=== PATIENT | male | born 1965 | race Caucasian/White ===

== ENCOUNTER 2017-12-21 12:45 | Inpatient (IN) | payer MEDICAID ==
[~2017-12-21] VITALS: Ht 188 cm; Wt 55.6 kg
[~2017-12-21 12:45] MED LIST: ALBU17AE26 IH; ATAZ300C PO; CEPH-571 PO; EMTR1TAB PO; HYDR-569 PO; HYDR12.5 PO; LEVO750T21 PO; LORA10TA7 PO; NAPR-56 PO; OMEP40CA37 PO; PREG75CA30 PO; RITO100T PO; SYN0.088T PO; TAM75C PO
[2017-12-21] MEDS ORDERED: normal saline 1000ML IV soln IVB ONE (13:15)
[2017-12-21 13:38] LABS: BASOPHILS # (AUTO) 0.1 X10'3 (0-0.2); BASOPHILS % (AUTO) 3.4 % (0-1); EOSINOPHILS # (AUTO) 0.6 X10'3 (0-0.9); EOSINOPHILS % (AUTO) 23.2 % (0-6); HEMATOCRIT 35.1 % (42.0-52.0); HEMOGLOBIN 12.4 g/dl (14.0-17.9); LYMPHOCYTES # (AUTO) 1.1 X10'3 (1.1-4.8); MEAN CORPUSCULAR HEMOGLOBIN 30.8 PG (27.0-31.0); MEAN CORPUSCULAR HGB CONC 35.5 % (33.0-36.5); MEAN CORPUSCULAR VOLUME 86.9 FL (78-98); MEAN PLATELET VOLUME 9.3 FL (7.4-10.4); MONOCYTES # (AUTO) 0.7 X10'3 (0-0.9); MONOCYTES % (AUTO) 25.2 % (2-12); NEUTROPHILS # (AUTO) 0.2 X10'3 (1.8-7.7); NEUTROPHILS % (AUTO) 6.2 % (42-75); RED BLOOD COUNT 4.04 X10'6 (4.70-6.10); RED CELL DISTRIBUTION WIDTH 14.9 % (11.5-14.5); WHITE BLOOD COUNT 2.7 X10'3 (4.5-11.0)
[2017-12-21 13:54] LABS: PLATELET COUNT 7 X10'3 (140-440)
[2017-12-21 13:55] LABS: ALANINE AMINOTRANSFERASE 17 U/L (12-78); ALBUMIN 3.7 G/DL (3.4-5.0); ALBUMIN/GLOBULIN RATIO 0.8 (1.1-1.5); ALKALINE PHOSPHATASE 75 IU/L (46-116); ANION GAP 13 (8-16); ASPARTATE AMINO TRANSFERASE 16 U/L (10-37); BILIRUBIN,TOTAL 0.5 MG/DL (0.1-1.0); BLOOD UREA NITROGEN 30 MG/DL (7-18); BUN/CREATININE RATIO 11.7 (5.4-32.0); CALCIUM 8.7 MG/DL (8.5-10.1); CHLORIDE 102 MMOL/L (99-107); CREATININE 2.57 MG/DL (0.60-1.10); GLUCOSE 147 MG/DL (70-104); POTASSIUM 4.2 MMOL/L (3.5-5.1); SODIUM 137 MMOL/L (135-145); TOTAL CARBON DIOXIDE 22.1 MMOL/L (24-32); TOTAL PROTEIN 8.5 G/DL (6.4-8.2); eGFR 27 ML/MIN
[2017-12-21 13:59] LABS: PLATELET ESTIMATE DECREASED; TOTAL CELLS COUNTED 100
[2017-12-21 15:44] VITALS: BP 103/56
[2017-12-21 16:10] VITALS: BP 136/76
[2017-12-21] MEDS ORDERED: magnesium hydroxide 30ml (MOM) UD suspension PO PRN (18:05)
[2017-12-21] MEDS ORDERED: HYDROcodone/acetaminophen 5mg/325mg tablet PO PRN (18:05)
[2017-12-21] MEDS ORDERED: mag hydrox/Alum hydrox/simeth 30ml oral suspension PO PRN (18:05)
[2017-12-21] MEDS ORDERED: acetaminophen 325mg tablet PO PRN ×2 (18:05)
[2017-12-21] MEDS ORDERED: ondansetron/PF 4mg/2ml inj IV PRN (18:05)
[2017-12-21] MEDS ORDERED: albuterol 2.5 MG/3 ML nebule NEB PRN (18:25)
[2017-12-21 18:27] LABS: BASOPHILS # (AUTO) 0.1 X10'3 (0-0.2); BASOPHILS % (AUTO) 2.7 % (0-1); EOSINOPHILS # (AUTO) 0.6 X10'3 (0-0.9); EOSINOPHILS % (AUTO) 23.6 % (0-6); HEMOGLOBIN 11.4 g/dl (14.0-17.9); LYMPHOCYTES # (AUTO) 1.2 X10'3 (1.1-4.8); LYMPHOCYTES % (AUTO) 43.5 % (21-51); MEAN CORPUSCULAR HEMOGLOBIN 30.4 PG (27.0-31.0); MEAN CORPUSCULAR HGB CONC 34.6 % (33.0-36.5); MEAN CORPUSCULAR VOLUME 87.9 FL (78-98); MEAN PLATELET VOLUME 9.8 FL (7.4-10.4); MONOCYTES # (AUTO) 0.7 X10'3 (0-0.9); NEUTROPHILS # (AUTO) 0.1 X10'3 (1.8-7.7); NEUTROPHILS % (AUTO) 4.2 % (42-75); RED BLOOD COUNT 3.75 X10'6 (4.70-6.10); RED CELL DISTRIBUTION WIDTH 15.1 % (11.5-14.5); WHITE BLOOD COUNT 2.7 X10'3 (4.5-11.0)
[2017-12-21] MEDS ORDERED: pregabalin 75mg capsule PO PRN (18:35)
[2017-12-21 18:41] LABS: PLATELET ESTIMATE DECREASED; TOTAL CELLS COUNTED 100
[2017-12-21] MEDS ORDERED: OMEP40CA37 PO (18:44)
[2017-12-21] MEDS ORDERED: ALBU8.5H8 INH (18:44)
[2017-12-21] MEDS ORDERED: EMTR1TAB18 (18:44)
[2017-12-21] MEDS ORDERED: LISI40TA4 PO (18:44)
[2017-12-21] MEDS ORDERED: SYN0.088T PO (18:44)
[2017-12-21] MEDS ORDERED: DOLU50TA (18:44)
[2017-12-21 18:47] LABS: PLATELET COUNT 11 X10'3 (140-440)
[2017-12-21 18:48] LABS: CLARITY,URINE CLEAR (Clear); COLOR,URINE YELLOW (Yellow); GLUCOSE, URINE NEGATIVE (Neg); KETONES,URINE NEGATIVE (Neg); LEUKOCYTE ESTERASE ,URINE NEGATIVE (Neg); NITRITES, URINE NEGATIVE (Neg); OCCULT BLOOD,URINE NEGATIVE (Neg); PROTEIN,URINE NEGATIVE (Neg)
[2017-12-21 18:51] LABS: UA COLLECTION TYPE CLN CATCH MIDSTREAM
[2017-12-21 20:03] VITALS: BP 130/70
[2017-12-21 20:13] VITALS: BP 127/83
[2017-12-21] MEDS: normal saline 1000ml 1,000 ML IV SCH (20:23)
[2017-12-21] MEDS ORDERED: temazepam 15mg capsule PO PRN (21:00)
[2017-12-21 22:08] LABS: BASOPHILS # (AUTO) 0.1 X10'3 (0-0.2); BASOPHILS % (AUTO) 2.7 % (0-1); EOSINOPHILS # (AUTO) 0.8 X10'3 (0-0.9); EOSINOPHILS % (AUTO) 32.7 % (0-6); HEMATOCRIT 33.6 % (42.0-52.0); HEMOGLOBIN 11.6 g/dl (14.0-17.9); LYMPHOCYTES % (AUTO) 41.8 % (21-51); MEAN CORPUSCULAR HEMOGLOBIN 30.4 PG (27.0-31.0); MEAN CORPUSCULAR HGB CONC 34.4 % (33.0-36.5); MEAN CORPUSCULAR VOLUME 88.2 FL (78-98); MONOCYTES # (AUTO) 0.5 X10'3 (0-0.9); MONOCYTES % (AUTO) 21.3 % (2-12); NEUTROPHILS % (AUTO) 1.5 % (42-75); RED BLOOD COUNT 3.81 X10'6 (4.70-6.10); RED CELL DISTRIBUTION WIDTH 14.9 % (11.5-14.5); WHITE BLOOD COUNT 2.4 X10'3 (4.5-11.0)
[2017-12-21 22:19] LABS: PLATELET COUNT 13 X10'3 (140-440)
[2017-12-21 22:29] LABS: TOTAL CELLS COUNTED 100
[2017-12-21 22:30] LABS: PLATELET ESTIMATE DECREASED
[2017-12-22 02:01] LABS: ALBUMIN 3.2 G/DL (3.4-5.0); ANION GAP 11 (8-16); BLOOD UREA NITROGEN 25 MG/DL (7-18); BUN/CREATININE RATIO 11.6 (5.4-32.0); CALCIUM 8.2 MG/DL (8.5-10.1); CHLORIDE 104 MMOL/L (99-107); CREATININE 2.15 MG/DL (0.60-1.10); GLUCOSE 110 MG/DL (70-104); POTASSIUM 4.1 MMOL/L (3.5-5.1); SODIUM 137 MMOL/L (135-145); TOTAL CARBON DIOXIDE 22.3 MMOL/L (24-32); eGFR 33 ML/MIN
[2017-12-22 02:10] LABS: HEMATOCRIT 34.1 % (42.0-52.0); HEMOGLOBIN 11.9 g/dl (14.0-17.9); MEAN CORPUSCULAR HEMOGLOBIN 31.2 PG (27.0-31.0); MEAN CORPUSCULAR VOLUME 88.9 FL (78-98); MEAN PLATELET VOLUME 8.9 FL (7.4-10.4); RED BLOOD COUNT 3.83 X10'6 (4.70-6.10); RED CELL DISTRIBUTION WIDTH 15.3 % (11.5-14.5); WHITE BLOOD COUNT 2.7 X10'3 (4.5-11.0)
[2017-12-22 02:35] LABS: PLATELET COUNT 8 X10'3 (140-440)
[2017-12-22 03:41] LABS: PLATELET ESTIMATE DECREASED; TOTAL CELLS COUNTED 100
[2017-12-22 03:42] LABS: SPHEROCYTES FEW
[2017-12-22 03:45] LABS: ANISOCYTOSIS 1+
[2017-12-22 03:46] LABS: TEAR DROP CELLS FEW
[2017-12-22 04:59] VITALS: BP 116/71
[2017-12-22 05:06] VITALS: BP 122/63
[2017-12-22] MEDS: normal saline 1000ml 1,000 ML IV SCH ×2 (05:09→15:10)
[2017-12-22] MEDS ORDERED: levoTHYROXINE 100mcg tablet PO SCH (08:00)
[2017-12-22] MEDS ORDERED: BACDS (12:19)
[2017-12-22 14:15] VITALS: BP 147/82
[2017-12-22] MEDS ORDERED: methylPREDNISolone sod succ 125mg/2ml vial IV ONE (14:55)
[2017-12-24 08:23] LABS: TRIIODOTHYRONINE (T3) 73 ng/dL (71-180)
== END 2017-12-22 23:10 | disposition short-term general hospital (02) | DRG 660 ==
LOC: ER 12:46 → ED HOLD 18:04 → MED 3N 12-22 17:40
PROVIDERS: ADMIT Family Medicine; ATTEND Family Medicine
PROC: 30233R1 Transfusion of Nonautologous Platelets into Peripheral Vein, Percutaneous Approach (ICD-10-PCS; principal; 2017-12-21)
PROC: BW251ZZ Computerized Tomography (CT Scan) of Chest, Abdomen and Pelvis using Low Osmolar Contrast (ICD-10-PCS; 2017-12-21)
DX: D61.818 Other pancytopenia (principal); N17.9 Acute kidney failure, unspecified; N18.3 Chronic kidney disease, stage 3 (moderate); J44.9 Chronic obstructive pulmonary disease, unspecified; E03.9 Hypothyroidism, unspecified; D73.1 Hypersplenism; E86.0 Dehydration; F12.90 Cannabis use, unspecified, uncomplicated; H91.90 Unspecified hearing loss, unspecified ear; I25.10 Atherosclerotic heart disease of native coronary artery without angina pectoris; Z21 Asymptomatic human immunodeficiency virus [HIV] infection status; R73.9 Hyperglycemia, unspecified; F17.210 Nicotine dependence, cigarettes, uncomplicated; Z79.899 Other long term (current) drug therapy; Z80.1 Family history of malignant neoplasm of trachea, bronchus and lung; Z82.3 Family history of stroke; Z86.73 Personal history of transient ischemic attack (TIA), and cerebral infarction without residual deficits
CPT/HCPCS: 36415; 71046; 71250; 74176; 80048; 80053; 81003; 83010; 83615; 83880; 84443; 84480; 84484; 85025; 86885; 86900; 86901; 87070; 96360; 99285; J2930; J7030; P9035

== ENCOUNTER 2018-02-07 20:57 | Emergency (ER) | payer MEDICAID ==
[~2018-02-07] VITALS: Ht 188 cm; Wt 82.8 kg
[~2018-02-07 20:57] MED LIST changes: -ALBU17AE26 IH; +ALBU8.5H8 INH; -ATAZ300C PO; +BACDS; -CEPH-571 PO; +DOLU50TA; -EMTR1TAB PO; +EMTR1TAB18; -HYDR-569 PO; -HYDR12.5 PO; -LEVO750T21 PO; +LISI40TA4 PO; -LORA10TA7 PO; -NAPR-56 PO; -PREG75CA30 PO; -RITO100T PO; -TAM75C PO
[2018-02-07 21:05] VITALS: BP 119/86
== END 2018-02-08 01:23 | disposition left against medical advice (07) ==
LOC: ER 20:57
DX: T78.40XA Allergy, unspecified, initial encounter (principal); M54.5 Low back pain; R07.89 Other chest pain; Z53.21 Procedure and treatment not carried out due to patient leaving prior to being seen by health care provider; X58.XXXA Exposure to other specified factors, initial encounter
CPT/HCPCS: 93005; 99281

== ENCOUNTER 2019-05-16 15:03 | Outpatient (CLI) | payer MEDICAID ==
[~2019-05-16 15:03] MED LIST changes: +OMEP40CA13 PO; -OMEP40CA37 PO
== END 2019-05-16 16:15 | disposition home or self-care (01) ==
LOC: ORTHO 15:03
PROVIDERS: ATTEND Orthopaedic Surgery
DX: M17.11 Unilateral primary osteoarthritis, right knee (principal)
CPT/HCPCS: G0463

== ENCOUNTER 2021-11-20 11:20 | Emergency (ER) | payer MEDICAID ==
[~2021-11-20] VITALS: Ht 188 cm; Wt 77.3 kg
[~2021-11-20 11:20] MED LIST changes: +ALBU8.5H17 INH; -ALBU8.5H8 INH; -BACDS; +LISI40TA13 PO; -LISI40TA4 PO; -OMEP40CA13 PO; +OMEP40CA21 PO; +SULF1TAB45
[2021-11-20 12:07] LABS: BASOPHILS % (AUTO) 0.7 % (0-1); EOSINOPHILS # (AUTO) 0.1 X10'3 (0-0.9); EOSINOPHILS % (AUTO) 1.5 % (0-6); HEMATOCRIT 37.5 % (42.0-52.0); HEMOGLOBIN 12.9 g/dl (14.0-17.9); LYMPHOCYTES # (AUTO) 1.8 X10'3 (1.1-4.8); LYMPHOCYTES % (AUTO) 40.7 % (21-51); MEAN CORPUSCULAR HEMOGLOBIN 28.8 PG (27.0-31.0); MEAN CORPUSCULAR HGB CONC 34.3 g/dL (33.0-36.5); MEAN CORPUSCULAR VOLUME 83.9 FL (78-98); MEAN PLATELET VOLUME 8.5 FL (7.4-10.4); MONOCYTES # (AUTO) 1.8 X10'3 (0-0.9); MONOCYTES % (AUTO) 42.2 % (2-12); NEUTROPHILS # (AUTO) 0.7 X10'3 (1.8-7.7); NEUTROPHILS % (AUTO) 14.9 % (42-75); PLATELET COUNT 158 X10'3 (140-440); RED BLOOD COUNT 4.47 X10'6 (4.70-6.10); RED CELL DISTRIBUTION WIDTH 15.2 % (11.5-14.5); WHITE BLOOD COUNT 4.4 X10'3 (4.5-11.0)
[2021-11-20] MEDS ORDERED: normal saline 1000ML IV soln IV ONE (12:10)
[2021-11-20 12:23] LABS: ALANINE AMINOTRANSFERASE 26 U/L (12-78); ALBUMIN 3.5 G/DL (3.4-5.0); ALBUMIN/GLOBULIN RATIO 0.6 (1.1-1.5); ALKALINE PHOSPHATASE 133 IU/L (46-116); ANION GAP 15 (8-16); ASPARTATE AMINO TRANSFERASE 25 U/L (10-37); BILIRUBIN,TOTAL 0.9 MG/DL (0.1-1.0); BLOOD UREA NITROGEN 53 MG/DL (7-18); BUN/CREATININE RATIO 15.8 (5.4-32.0); CALCIUM 8.8 MG/DL (8.5-10.1); CHLORIDE 90 MMOL/L (99-107); CREATININE 3.35 MG/DL (0.60-1.10); GLUCOSE 109 MG/DL (70-104); POTASSIUM 3.1 MMOL/L (3.5-5.1); SODIUM 126 MMOL/L (135-145); TOTAL CARBON DIOXIDE 21.2 MMOL/L (24-32); TOTAL PROTEIN 8.9 G/DL (6.4-8.2); eGFR 19 ML/MIN
[2021-11-20 13:14] VITALS: BP 113/74
[2021-11-20 13:25] LABS: PLATELET ESTIMATE NORMAL; TOTAL CELLS COUNTED 100
--- NOTE | 2021-11-20 13:30 | NUR ---
Pt sitting comfortably in bed, leaning forward asking for a urinal.
[2021-11-20 14:37] LABS: CLARITY,URINE CLEAR (Clear); COLOR,URINE YELLOW (Yellow); GLUCOSE, URINE NEGATIVE (Neg); KETONES,URINE NEGATIVE (Neg); LEUKOCYTE ESTERASE ,URINE NEGATIVE (Neg); NITRITES, URINE NEGATIVE (Neg); OCCULT BLOOD,URINE SMALL (Neg); PROTEIN,URINE TRACE mg/dl (Neg); UROBILINOGEN,URINE 0.2 E.U/dL (0.2-1.0)
[2021-11-20 14:49] LABS: UA COLLECTION TYPE VOIDED
[2021-11-20 14:51] LABS: HYALINE CASTS 0-3 /LPF (NEGATIVE); WBC,URINE 0-4 /HPF (0-4)
[2021-11-20 14:52] LABS: BACTERIA,URINE FEW /HPF (Neg); MUCUS STRANDS NONE SEEN /LPF (Neg); RBC,URINE 0-2 /HPF (0-2); SQUAMOUS EPITHELIAL CELL,UR FEW /LPF (FEW)
== END 2021-11-20 14:51 | disposition home or self-care (01) ==
LOC: ER 11:21
DX: S20.212A Contusion of left front wall of thorax, initial encounter (principal); I13.11 Hypertensive heart and chronic kidney disease without heart failure, with stage 5 chronic kidney disease, or end stage renal disease; N18.6 End stage renal disease; Y04.8XXA Assault by other bodily force, initial encounter; Y93.89 Activity, other specified; Y92.89 Other specified places as the place of occurrence of the external cause; Y99.8 Other external cause status
CPT/HCPCS: 36415; 71045; 74176; 80053; 81001; 84484; 85007; 85025; 85610; 86885; 86900; 86901; 93005; 99285; J7030

== ENCOUNTER 2022-01-02 13:42 | Emergency (ER) | payer MEDICAID ==
[~2022-01-02] VITALS: Ht 182.9 cm; Wt 77.0 kg
[2022-01-02 13:53] VITALS: BP 132/86
== END 2022-01-02 16:41 | disposition home or self-care (01) ==
LOC: ER 13:43
DX: M25.462 Effusion, left knee (principal); I11.9 Hypertensive heart disease without heart failure; J44.9 Chronic obstructive pulmonary disease, unspecified; F12.10 Cannabis abuse, uncomplicated; F15.10 Other stimulant abuse, uncomplicated; E06.9 Thyroiditis, unspecified; Z79.899 Other long term (current) drug therapy
CPT/HCPCS: 29505; 73564; 99284

== ENCOUNTER 2022-07-06 14:47 | Emergency (ER) | payer MEDICAID ==
[~2022-07-06] VITALS: Ht 188 cm; Wt 81.8 kg
[2022-07-06 15:00] VITALS: BP 106/71
[2022-07-06 16:43] LABS: EOSINOPHILS # (AUTO) 0.3 X10'3 (0-0.9); LYMPHOCYTES # (AUTO) 1.4 X10'3 (1.1-4.8); MEAN PLATELET VOLUME 7.8 FL (7.4-10.4); NEUTROPHILS # (AUTO) 0.4 X10'3 (1.8-7.7); WHITE BLOOD COUNT 2.8 X10'3 (4.5-11.0)
[2022-07-06 16:44] LABS: HEMATOCRIT 40.2 % (42.0-52.0); HEMOGLOBIN 13.9 g/dl (14.0-17.9); MEAN CORPUSCULAR HEMOGLOBIN 29.1 PG (27.0-31.0); MEAN CORPUSCULAR HGB CONC 34.5 g/dL (33.0-36.5); MEAN CORPUSCULAR VOLUME 84.4 FL (78-98); PLATELET COUNT 84 X10'3 (140-440); RED BLOOD COUNT 4.77 X10'6 (4.70-6.10); RED CELL DISTRIBUTION WIDTH 13.2 % (11.5-14.5)
[2022-07-06 16:45] LABS: BASOPHILS % (AUTO) 1.4 % (0-1); LYMPHOCYTES % (AUTO) 49.5 % (21-51); MONOCYTES # (AUTO) 0.7 X10'3 (0-0.9); MONOCYTES % (AUTO) 23.1 % (2-12)
[2022-07-06 17:02] LABS: ALANINE AMINOTRANSFERASE 17 U/L (12-78); ALBUMIN 3.6 G/DL (3.4-5.0); ALBUMIN/GLOBULIN RATIO 0.9 (1.1-1.5); ALKALINE PHOSPHATASE 89 IU/L (46-116); ANION GAP 8 (8-16); ASPARTATE AMINO TRANSFERASE 30 U/L (10-37); BILIRUBIN,TOTAL 0.6 MG/DL (0.1-1.0); BLOOD UREA NITROGEN 21 MG/DL (7-18); CALCIUM 9.1 MG/DL (8.5-10.1); CHLORIDE 98 MMOL/L (99-107); CREATININE 2.64 MG/DL (0.60-1.10); GLUCOSE 100 MG/DL (70-104); POTASSIUM 4.9 MMOL/L (3.5-5.1); SODIUM 133 MMOL/L (135-145); TOTAL CARBON DIOXIDE 26.8 MMOL/L (24-32); TOTAL PROTEIN 7.7 G/DL (6.4-8.2); eGFR 25 ML/MIN
[2022-07-06 17:10] LABS: TOTAL CELLS COUNTED 100
[2022-07-06 17:11] LABS: GIANT PLATELET FEW; PLATELET ESTIMATE DECREASED
[2022-07-06 17:26] LABS: ETHANOL < 0.010 GM/DL (0.0-0.010)
[2022-07-06 18:07] LABS: URINE AMPHETAMINE SCREEN POSITIVE (Neg); URINE BARBITUATE SCREEN NEGATIVE (Neg); URINE BENZODIAZEPINES SCREEN NEGATIVE (Neg); URINE CANNABINOID SCREEN POSITIVE (Neg); URINE COCAINE SCREEN NEGATIVE (Neg); URINE METHADONE SCREEN NEGATIVE (Neg); URINE OPIATE SCREEN NEGATIVE (Neg); URINE PHENCYCLIDINE SCREEN NEGATIVE (Neg)
== END 2022-07-06 20:18 | disposition home or self-care (01) ==
LOC: ER 14:48
DX: R44.0 Auditory hallucinations (principal); J44.9 Chronic obstructive pulmonary disease, unspecified; I10 Essential (primary) hypertension; E07.9 Disorder of thyroid, unspecified; F12.10 Cannabis abuse, uncomplicated; F15.10 Other stimulant abuse, uncomplicated
CPT/HCPCS: 36415; 70450; 80053; 80305; 80320; 82140; 84443; 85007; 85025; 99284

== ENCOUNTER 2022-08-21 13:17 | Emergency (ER) | payer MEDICAID ==
[~2022-08-21] VITALS: Ht 188 cm; Wt 81.0 kg
[2022-08-21 13:23] VITALS: BP 162/91
[2022-08-21 15:32] LABS: BASOPHILS # (AUTO) 0.1 X10'3 (0-0.2); BASOPHILS % (AUTO) 0.9 % (0-1); EOSINOPHILS # (AUTO) 0.1 X10'3 (0-0.9); EOSINOPHILS % (AUTO) 1.8 % (0-6); HEMOGLOBIN 12.5 g/dl (14.0-17.9); LYMPHOCYTES # (AUTO) 2.1 X10'3 (1.1-4.8); LYMPHOCYTES % (AUTO) 27.3 % (21-51); MEAN CORPUSCULAR HEMOGLOBIN 30.1 PG (27.0-31.0); MEAN CORPUSCULAR HGB CONC 33.7 g/dL (33.0-36.5); MEAN CORPUSCULAR VOLUME 89.4 FL (78-98); MEAN PLATELET VOLUME 6.4 FL (7.4-10.4); MONOCYTES # (AUTO) 0.7 X10'3 (0-0.9); MONOCYTES % (AUTO) 9.7 % (2-12); NEUTROPHILS # (AUTO) 4.6 X10'3 (1.8-7.7); NEUTROPHILS % (AUTO) 60.3 % (42-75); PLATELET COUNT 245 X10'3 (140-440); RED BLOOD COUNT 4.14 X10'6 (4.70-6.10); RED CELL DISTRIBUTION WIDTH 17.2 % (11.5-14.5); WHITE BLOOD COUNT 7.7 X10'3 (4.5-11.0)
[2022-08-21 15:46] LABS: ALANINE AMINOTRANSFERASE 19 U/L (12-78); ALBUMIN 3.5 G/DL (3.4-5.0); ALKALINE PHOSPHATASE 107 IU/L (46-116); ANION GAP 12 (8-16); ASPARTATE AMINO TRANSFERASE 19 U/L (10-37); BILIRUBIN,TOTAL 0.8 MG/DL (0.1-1.0); BLOOD UREA NITROGEN 24 MG/DL (7-18); BUN/CREATININE RATIO 16.4 (5.4-32.0); C-REACTIVE PROTEIN 2.58 MG/DL (0.0-0.5); CALCIUM 8.6 MG/DL (8.5-10.1); CHLORIDE 101 MMOL/L (99-107); CREATININE 1.46 MG/DL (0.60-1.10); GLUCOSE 97 MG/DL (70-104); POTASSIUM 4.3 MMOL/L (3.5-5.1); SODIUM 138 MMOL/L (135-145); TOTAL CARBON DIOXIDE 24.8 MMOL/L (24-32); TOTAL PROTEIN 6.9 G/DL (6.4-8.2); eGFR 50 ML/MIN
== END 2022-08-21 17:10 | disposition home or self-care (01) ==
LOC: ER 13:18
DX: L53.8 Other specified erythematous conditions (principal); M25.471 Effusion, right ankle; J44.9 Chronic obstructive pulmonary disease, unspecified; E03.9 Hypothyroidism, unspecified; I11.9 Hypertensive heart disease without heart failure; F12.10 Cannabis abuse, uncomplicated; F15.10 Other stimulant abuse, uncomplicated; Z79.899 Other long term (current) drug therapy; Z79.1 Long term (current) use of non-steroidal anti-inflammatories (NSAID)
CPT/HCPCS: 29540; 36415; 73610; 80053; 85025; 85651; 86140; 99283; L1930

== ENCOUNTER 2024-02-23 15:04 | Outpatient (CLI) | payer MEDICAID | END 2024-02-23 23:59 | disposition home or self-care (01) | LOC: RAD 15:04 | PROVIDERS: ATTEND Student in an Organized Health Care Education/Training Program | DX: Z12.2 Encounter for screening for malignant neoplasm of respiratory organs (principal); R91.8 Other nonspecific abnormal finding of lung field; R59.0 Localized enlarged lymph nodes; I25.10 Atherosclerotic heart disease of native coronary artery without angina pectoris; I35.8 Other nonrheumatic aortic valve disorders | CPT/HCPCS: 71271 ==

== ENCOUNTER 2025-05-16 18:31 | Emergency (ER) | payer MEDICAID ==
[~2025-05-16] VITALS: Ht 188 cm; Wt 81.8 kg
[~2025-05-16 18:31] MED LIST changes: -LISI40TA13 PO; +LISI40TA20 PO
[2025-05-16 18:43] VITALS: TEMP 98.4
--- NOTE | 2025-05-16 21:11 | Physician Documentation ---
History of Present Illness ~ Chief Complaint: Abscess Stated Complaint: INFECTION Time Seen by MD: 20:26 Primary Medical Doctor: Jermaine Mode of Arrival: POV HPI 59-year-old male who is hard of hearing presents with a complaint of an infection in his right shoulder. Wound is open and draining pus with red erythema in the surrounding tissue denies any fevers states he does have a history of IV drug use. Denies any alcohol use Patient states that this infection started 2-3 days ago however upon initial observation it appears a chronic skin developed has since developed surrounding infection acutely Day of Onset: May 16, 2025 Tetanus Within 5 Years: Yes Medication Reconciliation Allergies: Coded Allergies: No Known Allergies (Unverified , 05/16/25) Scheduled Albuterol Sulfate (Proair Hfa), 2 PUFFS INH Q4HPRN, (Reported) Dolutegravir Sodium (Tivicay), 1 TAB DAILY, (Reported) Emtricitabine/Tenofov Alafenam (Descovy 200-25 mg Tablet), 1 TABLET DAILY, (Reported) Levothyroxine Sodium* (Synthroid*), 300 MCG PO DAILY, (Reported) Lisinopril* (Lisinopril*), 5 MG PO DAILY, (Reported) Omeprazole (Prilosec), 20 MG PO DAILY, (Reported) Miscellaneous Medications Sulfamethoxazole/Trimethoprim (Septra Ds Tab), (Reported) Past Medical History Past Medical History: CVA/TIA/Stroke, Hypertension, COPD, *GI/HEPATOBILIARY*, Hypothyroidism, HIV Past Surgical History: noncontributory Patient History: (CAD) Coronary arteriosclerosis (COPD) Chronic obstructive lung disease (CVA) Cerebrovascular accident Alcohol Use: Occasionally Drug Use: marijuana, methamphetamine Lives with: Other Lives In: Home Review of Systems All Other Systems at this time: Reviewed and Negative ROS As stated above in the HPI, otherwise all systems are reviewed and negative. Physical Exam Vital Signs: Temperature: 98.4, Source: Temporal, Heart Rate: 62, Respiratory Rate: 16, BP: 137/95, Pulse Oximetry: 99, Weight: 81.820 Oxygen Flow Rate: 0 Physical Exam General: Alert, no apparent distress. Chest: No accessory muscle use. Large skin growth 4x5cm ,on the right clavicle region with surrounding erythema and purulent discharge Neurologic: Oriented x4. Psychiatric: Normal mood and affect. Skin: Normal color, warm and dry. No edema, no ecchymosis. Progress Results/Orders Results/Orders Orders - OLLIE LLANOS DNA SEQUENCING ASSOCIATE Culture Body Fluid Order (05/16/25 20:31) Culture Blood (05/16/25 20:35) Urinalysis, Cult If Indicated (05/16/25 20:35) Monitor (05/16/25 20:35) Saline Lock (05/16/25 20:35) Cult (Aer) Routine C&S+Gram St (05/16/25 21:07) Completed Orders - OLLIE LLANOS H DNA SEQUENCING ASSOCIATE Cbc/Diff (05/16/25 20:35) Procalcitonin (05/16/25 20:35) BMP (05/16/25 20:35) Lacticsepsis (05/16/25 20:35) Sulfamethox/Trimetho. Ds Tab (Septra Ds (05/16/25 21:40) Cephalexin Capsule (Keflex Capsule) (05/16/25 21:40) Medications Received in ER Medications (Trade) Dose Ordered Sig/Xochitl Route PRN Reason Start Time Stop Time Status Last Admin Dose Admin (Mayra DS tab) 1 tab ONCE ONCE PO 05/16/25 21:40 05/16/25 21:41 DC 05/16/25 21:56 1 TAB (Keflex capsule) 500 mg ONCE ONCE PO 05/16/25 21:40 05/16/25 21:41 DC 05/16/25 21:56 500 MG Vital Signs 05/16/25 05/16/25 05/16/25 05/16/25 18:43 19:50 19:51 21:13 Temp 98.4 Pulse 67 62 68 Resp 16 16 16 B/P (MAP) 125/81 137/95 (109) 118/88 (98) Pulse Ox 98 99 98 O2 Flow Rate 0 Laboratory Tests Test 05/16/25 20:50 05/16/25 21:00 White Blood Count 4.9 Red Blood Count 3.63 L Hemoglobin 11.7 L Hematocrit 32.9 L Mean Corpuscular Volume 90.6 Mean Corpuscular Hemoglobin 32.2 H Mean Corpuscular Hemoglobin Concent 35.5 Red Cell Distribution Width 15.2 H Platelet Count 165 Mean Platelet Volume 7.6 Neutrophils (%) (Auto) 56.2 Lymphocytes (%) (Auto) 30.5 Monocytes (%) (Auto) 7.3 Eosinophils (%) (Auto) 4.0 Basophils (%) (Auto) 2.0 H Neutrophils # (Auto) 2.7 Lymphocytes # (Auto) 1.5 Monocytes # (Auto) 0.4 Eosinophils # (Auto) 0.2 Basophils # (Auto) 0.1 CBC Comment Sodium Level 138 Potassium Level 4.6 Chloride Level 103 Carbon Dioxide Level 27.0 Anion Gap 8 Blood Urea Nitrogen 19 H Creatinine 2.32 H Estimated GFR/1.73 m2 29 BUN/Creatinine Ratio 8.2 L Glucose Level 97 Lactic Acid Level 0.7 Calcium Level 8.7 Albumin 3.4 Procalcitonin < 0.05 Chemistry Comments Urine Comment Medical Decision Making Findings Utilizing the bedside ultrasound I did not appreciate any signs of a large pustule or cavity that required draining wound appears chronic however patient likely has developed a cutaneous infection in the surrounding tissue. Ordered a wound culture and awaiting laboratory He has not indicate any signs of sepsis however I do want to treat the patient for a developing cutaneous infection. I also think patient needs to follow up with Dermatology for further evaluation of his lesion Differential Dx:Considerations: Include: Abscess, Bacteremia, Cellulitis, Erysipelas, Felon, Gas gangrene, Hidrademitis suppurativa, Impetigo, Lymphangitis, Osteromyelitis, Paronychia, Septicemia, Other Departure Disposition: 01 HOME / SELF CARE / HOMELESS Impression: Primary Impression: CKD (chronic kidney disease), stage IV Additional Impressions: Cellulitis Skin lesion Condition: Stable Discharge Instructions: Cellulitis, Adult, [id number] Referrals: NO PRIMARY CARE PROVIDER (PCP) Prescriptions Sulfamethoxazole/Trimethoprim (Septra Ds Tab) 800 Mg/160 Mg Tablet 1 TAB PO Q12H for 10 Days, #20 TAB Prov: OLLIE LLANOS NP 05/16/25 Cephalexin*Monohydrate* (Keflex*) 500 Mg Capsule 1 CAP PO QID, #40 CAP Prov: OLLIE LLANOS NP 05/16/25 Signature Scribe Signature: t Attestation: Scribed for Ollie Llanos Np by Ollie Klein NP . 05/16/25 21:42 OLLIE LLANOS NP May 16, 2025 21:11
[2025-05-16 21:13] VITALS: BP 118/88; PULSE 68; RESP 16; O2SAT 98
[2025-05-16 21:24] LABS: CREATININE 2.32 MG/DL (0.60-1.10); TOTAL CARBON DIOXIDE 27.0 MMOL/L (24-32); eCRCL 40 ML/MIN; eGFR 29 ML/MIN
[2025-05-16 21:31] LABS: MEAN PLATELET VOLUME 7.6 FL (7.4-10.4); RED CELL DISTRIBUTION WIDTH 15.2 % (11.5-14.5)
[2025-05-16] MEDS: sulfamethoxazole/trimethoprim DS (800/160mg) tablet PO ONE (21:56)
[2025-05-16] MEDS ORDERED: SULF1TAB45 PO (22:05)
[2025-05-16] MEDS ORDERED: CEPH-585 PO (22:05)
== END 2025-05-16 22:12 | disposition home or self-care (01) ==
LOC: ER 18:32
DX: I12.9 Hypertensive chronic kidney disease with stage 1 through stage 4 chronic kidney disease, or unspecified chronic kidney disease (principal); N18.4 Chronic kidney disease, stage 4 (severe); L03.818 Cellulitis of other sites; J44.9 Chronic obstructive pulmonary disease, unspecified; F12.90 Cannabis use, unspecified, uncomplicated; E03.9 Hypothyroidism, unspecified; F15.90 Other stimulant use, unspecified, uncomplicated; I25.10 Atherosclerotic heart disease of native coronary artery without angina pectoris; Z86.73 Personal history of transient ischemic attack (TIA), and cerebral infarction without residual deficits; Z79.899 Other long term (current) drug therapy; Z72.89 Other problems related to lifestyle
CPT/HCPCS: 36415; 80048; 83605; 84145; 85025; 87040; 87070; 99284

== ENCOUNTER 2025-07-13 05:45 | Day surgery (SDC) | payer MEDICAID ==
--- NOTE | 2025-07-06 11:11 | ELECTROCARDIOGRAPH REPORT ---
[facility] Test Date: 2025-07-06 Test Time: 11:09:45 Pat Name: ERNESTO BARAKAT Department: [facility]-PRE-OP Patient ID: [id number] Room: Gender: M [employer] To Door Salesperson: MARGARITA : 1965 Requested By: QUEENIE MANCIA Order Number: [id number] Reading MD: Dr. MCKENZIE Alba Measurements Intervals Galt Rate: 57 P: 62 HI: 197 QRS: 62 QRSD: 157 T: 58 QT: 503 QTc: 490 Interpretive Statements Sinus bradycardia Right bundle branch block Electronically Signed On 07-06-2025 18:04:[address] MCKENZIE Alba Please click the below link to view image of tracing.
[2025-07-06 11:34] LABS: MEAN PLATELET VOLUME 7.5 FL (7.4-10.4); RED CELL DISTRIBUTION WIDTH 14.9 % (11.5-14.5)
[2025-07-06 11:37] LABS: PRE OP HEMATOCRIT 34.3 % (42.0-52.0); PRE OP HEMOGLOBIN 11.8 g/dL (14.0-17.9); PRE OP PLATELET COUNT 170 X10'3 (140-440); PRE OP WHITE BLOOD COUNT 5.6 10'3 (4.8-10.8)
--- NOTE | 2025-07-06 11:50 | RADIOLOGY REPORT ---
CT Chest without intravenous contrast INDICATION: LUNG MASS TECHNIQUE: Multidetector spiral CT of the chest was performed from the lung apices to the upper abdomen. Axial, coronal and sagittal multiplanar reformats were performed. Radiation Dose : 1. Chest: CTDI volume is 9.6 mGy. Dose-length product is 365.97 mGy*cm The dose indicators for CT are the volume Computed Tomography (CT) Dose Index (CTDIvol) and the Dose Length Product (DLP), and are measured in units of mGy and mGy-cm, respectively. These indicators are not patient dose, but values generated from the CT scanner acquisition factors. The report includes radiation exposure data for exposures received during this examination. Comparison: CT CT CHEST LOW DOSE on DOS: 02/23/24, CHEST,SINGLE VIEW on DOS: 11/20/21 Findings: Lower neck: Normal thyroid. Lungs: Dependent atelectasis. Spiculated nodule in the anterior right upper lobe measures 1.2 cm. Heart/Vascular Structures: Cardiomegaly. Coronary artery calcifications. Vascular calcifications of the aorta. Lymph Nodes: Multiple subcentimeter mediastinal lymph nodes. No adenopathy. Pleura: No pleural effusion or significant pneumothorax. Musculoskeletal: Degenerative changes of the spine. No acute osseous abnormality. Soft tissues: Normal. Upper abdomen: Limited portions of the upper abdomen are unremarkable. IMPRESSION: Spiculated nodule in the anterior right upper lobe measures 1.2 cm. Radiation optimization: All CT scans at this facility use at least one of these dose optimization techniques: automated exposure control mA and/or kV adjustment per patient size (includes targeted exams where dose is matched to clinical indication) or iterative reconstruction.
[2025-07-06 12:06] LABS: CREATININE 2.60 MG/DL (0.60-1.10); PRE OP ALT 16 U/L (30-65); PRE OP ANION GAP 9 (8-16); PRE OP AST 29 U/L (10-37); PRE OP BILIRUB, TOTAL 0.5 MG/DL (0.0-1.0); PRE OP GLUCOSE 86 MG/DL (70-104); PRE OP POTASSIUM 4.2 MMOL/L (3.4-5.1); PRE OP SODIUM 136 MMOL/L (135-145); TOTAL CARBON DIOXIDE 27.8 MMOL/L (24-32); eGFR 25 ML/MIN
[~2025-07-13] VITALS: Ht 188 cm; Wt 77.3 kg
[~2025-07-13 05:45] MED LIST changes: -EMTR1TAB18; +EMTR1TAB18 PO; +LEVO100T PO; -LISI40TA20 PO; -OMEP40CA21 PO; -SULF1TAB45; -SYN0.088T PO
[2025-07-13 06:15] VITALS: BP 141/90; PULSE 57; RESP 16; TEMP 97.9; O2SAT 99
[2025-07-13] MEDS ORDERED: epiNEPHrine 1 MG/ML 1 ml ampule **BRONCH ONLY ONE (06:54)
[2025-07-13] MEDS ORDERED: LIDOCAINE 4% (40MG/ML) topical solution 50ml **BRONCH ONLY ONE (06:55)
[2025-07-13] MEDS: ringers solution, lacted 1,000 ML IV SCH (06:55)
[2025-07-13] MEDS ORDERED: midazolam 1 mg/ML 2ml injection ONE (08:26)
[2025-07-13] MEDS ORDERED: fentaNYL/PF 50MCG/1 ML 2ML syringe ONE (08:26)
[2025-07-13] MEDS ORDERED: ondansetron/PF 4mg/2ml inj ONE (08:33)
[2025-07-13] MEDS ORDERED: HYDROmorphone/PF 0.2 MG/ML SYRINGE IV PRN ×2 (09:15)
[2025-07-13] MEDS ORDERED: labetalol 20mg/4ml (5mg/ml) syringe IV PRN (09:15)
[2025-07-13] MEDS ORDERED: morphine 4 MG/ML inj SYRINge IV PRN (09:15)
[2025-07-13] MEDS ORDERED: ringers solution, lacted 1,000 ML IV SCH (09:15)
[2025-07-13] MEDS ORDERED: fentaNYL/PF 50MCG/1 ML 2ML syringe IV PRN ×2 (09:15)
[2025-07-13] MEDS ORDERED: ondansetron/PF 4mg/2ml inj IV PRN (09:15)
[2025-07-13] MEDS ORDERED: enalaprilat 1.25mg/ml 2ml vial IV PRN (09:15)
[2025-07-13 09:34] VITALS: BP 139/89; PULSE 58; RESP 16; O2SAT 99
[2025-07-13 09:40] VITALS: BP 118/83; PULSE 60; RESP 14; O2SAT 99
[2025-07-13 09:50] VITALS: BP 116/80; PULSE 56; RESP 17; O2SAT 96
[2025-07-13] MEDS ORDERED: dexamethasone sod phosphate 4mg/ml inj. ONE (09:58)
[2025-07-13] MEDS ORDERED: LIDOcaine 2% (20mg/ml) 5ml vial ONE (09:58)
[2025-07-13] MEDS ORDERED: rocuronium 10mg/ml inj IV ONE (09:58)
[2025-07-13] MEDS ORDERED: propofol inj 20 ML IV ONE (09:58)
[2025-07-13 10:00] VITALS: BP 127/82; PULSE 59; RESP 12; O2SAT 96
--- NOTE | 2025-07-13 14:12 | OPERATIVE REPORT ---
DATE OF SURGERY: 07/13/2025 DICTATING PHYSICIAN: Chris Miranda MD PROCEDURE: Bronchoscopy. INDICATIONS: Patient with a right upper lung mass. POSTOPERATIVE DIAGNOSES: Right upper lung mass, emphysema, and COPD. DESCRIPTION OF PROCEDURE: The patient signed a consent after indications, potential complications were explained. He was intubated and sedated per protocol. I did a robotic bronchoscopy with [employer] system with multiple passes also to the nodules. We did about 7 passes of 2 nodules present and then every time we did that, we also did a navigation with the radial ultrasound, transbronchial biopsy, and transbronchial fine needle aspirations. I also did a cone beam CT scan at the bedside, BAL, and EBUS. Once the patient is sedated and intubated, we already had a plan on the computer system for the robotic bronchoscopy system. We navigated the catheter into the mass and we confirmed that the catheter was in the right position with a radial ultrasound. I did have to do a cone beam CT scan because the second lesion was the one that would look more concerning. It was very close to the first one, but it was very hard to get to, so I did require to recalibrate after the cone beam CT scan was done, but we got really good signals after that with a radial ultrasound. We got multiple samples between the 2 lesions that were close by. 8 different passes were done. Then we switched over to endobronchial ultrasound bronchoscope. There were some paratracheal lymph nodes quite large, about 1-2 cm in size in zone 7, 10R, and 10L. We started in the distal area on the left side and then moved to the middle and then to the right side. I also did a BAL. There was no pneumothorax. We checked with a fluoroscopy at the bedside. The patient tolerated the procedure well. No complications. Chris Miranda MD TID: [id number] RECEIPT: [id number] KAYLIN/ARDEN
--- NOTE | 2025-07-18 12:32 | PATHOLOGY REPORT ---
[facility] [address] [place] [address] [employer] CYTOLOGY REPORT CaseNumber: [id number] Surgeon:Chris Miranda PA-C CLINICAL INFORMATION CLINICAL INFORMATION: Pt with right upper lobe mass DIAGNOSIS DIAGNOSIS: A.LUNG, RIGHT UPPER LOBE; FINE NEEDLE ASPIRATION - EXTREMELY RARE REACTIVE BRONCHIAL EPITHELIAL CELLS. DIAGNOSIS: B.LUNG, RIGHT UPPER LOBE; BIOPSY - RARE BENIGN LUNG TISSUE. DIAGNOSIS: C.LYMPH NODE, ST 10L; FINE NEEDLE ASPIRATION - BENIGN LYMPHOID TISSUE. DIAGNOSIS: D.LYMPH NODE, ST 10R; FINE NEEDLE ASPIRATION - RARE ATYPICAL GLANDULAR CELLS, FAVOR REACTIVE. DIAGNOSIS: E.LYMPH NODE, ST 7; FINE NEEDLE ASPIRATION - EXTREMELY RARE ATYPICAL GLANDULAR CELLS, FAVOR REACTIVE. MICROSCOPIC DESCRIPTION A. LUNG, RIGHT UPPER LOBE MICROSCOPIC DESCRIPTION: 1 H&E stained cellblock and 1 double cytospin slide are examined. The H&E shows predominantly blood and fibrin intermixed with sparse histiocytes and lymphocytes. Extremely rare reactive bronchial epithelial cells with cilia are present. Double cytospin slide shows predominantly fibrin and rare lymphocytes B. LUNG, RIGHT UPPER LOBE MICROSCOPIC DESCRIPTION: 1 H&E-stained slide is examined showing a core biopsy of alveolar lung tissue. There are no malignant features. C. LYMPH NODE, ST 10L MICROSCOPIC DESCRIPTION: 1 H&E stained cellblock and 1 double cytospin slide are examined. They show fragments of benign lymphoid tissue. D. LYMPH NODE, ST 10R MICROSCOPIC DESCRIPTION: 1 H&E stained cellblock and 1 double cytospin slide are examined. The cellblock shows predominantly serum intermixed with inflammatory cells and scattered single rare atypical epithelioid cells with high NC ratios, coarse chromatin, rare mitotic activity, and scant granular eosinophilic cytoplasm. The background shows fragments of cartilage. These findings are favored to represent reactive glandular cells. The double cytospin slide shows predominantly serum and sparse inflammation. E. LYMPH NODE, ST 7 MICROSCOPIC DESCRIPTION: 1 H&E stained cellblock and 1 double cytospin slide are examined. The cellblock shows sparse acellular debris intermixed with inflammatory cells and atypical glandular cells that are favored to represent r eactive bronchial epithelial cells. The double cytospin slide shows similar findings. GROSS DESCRIPTION A. LUNG, RIGHT UPPER LOBE GROSS DESCRIPTION: Specimen is received in [facility], labeled with the patient's name and identified as "RUL FNA", having a total volume of 15mL. One double cytospin slide and one cell block is prepared. The cell block is submitted as A1. The time at which the specimen was collected was 0835. The time at which the specimen was placed in formalin was 0835. B. LUNG, RIGHT UPPER LOBE GROSS DESCRIPTION: Received in a container of formalin labeled with the patient's name, number, and "biopsy RUL "is a 0.4 x 0.3 x 0.1 cm of irregularly shaped pieces of baxter tissue submitted entirely as B1.The time at which the specimen was removed was not provided. The time at which the specimen was placed in formalin was not provided. C. LYMPH NODE, ST 10L GROSS DESCRIPTION: Specimen is received in cytostat red, labeled with the patient's name and identified as "FNA 10L", having a total volume of 15mL. One double cytospin slide and one cell block is prepared. The cell block is submitted as C1. The time at which the specimen was collected was 0835. The time at which the specimen was placed in formalin was 0835. D. LYMPH NODE, ST 10R GROSS DESCRIPTION: Specimen is received in cytostat red, labeled with the patient's name and identified as "FNA 10R", having a total volume of 15mL. One double cytospin slide and one cell block is prepared. The cell block is submitted as D1. The time at which the specimen was collected was 0835. The time at which the specimen was placed in formalin was 0835. E. LYMPH NODE, ST 7 GROSS DESCRIPTION: Specimen is received in cytostat red, labeled with the patient's name and identified as "FNA 7", having a total volume of 15mL. One double cytospin slide and one cell block is prepared. The cell block is submitted as E1. The time at which the specimen was collected was 0835. The time at which the specimen was placed in formalin was 0835. Electronically signed by: Rob Guevara, 07/18/2025 11:52:00 AM
== END 2025-07-13 10:14 | disposition home or self-care (01) ==
LOC: PAS 05:45
PROVIDERS: ATTEND Internal Medicine Critical Care Medicine
DX: R22.2 Localized swelling, mass and lump, trunk (principal); J98.4 Other disorders of lung; I45.10 Unspecified right bundle-branch block; I12.9 Hypertensive chronic kidney disease with stage 1 through stage 4 chronic kidney disease, or unspecified chronic kidney disease; N18.4 Chronic kidney disease, stage 4 (severe); J44.9 Chronic obstructive pulmonary disease, unspecified; E03.9 Hypothyroidism, unspecified; F32.A Depression, unspecified; I25.2 Old myocardial infarction; Z86.73 Personal history of transient ischemic attack (TIA), and cerebral infarction without residual deficits; Z79.890 Hormone replacement therapy; Z79.891 Long term (current) use of opiate analgesic; Z79.899 Other long term (current) drug therapy; Z90.89 Acquired absence of other organs; Z98.890 Other specified postprocedural states
CPT/HCPCS: 31624; 31627; 31628; 31653; 31654; 71250; 80053; 82948; 85025; 87015; 87070; 87116; 87206; 93005; J0169; J1100; J2003; J2250; J2405; J2704; J3010; J3490; J7120; Z7506; Z7508; Z7512; 31622; 31625; 31626; A4618